=== PATIENT | female | born 1990 | race Caucasian/White ===

== ENCOUNTER 2016-11-11 07:10 | Day surgery (SDC) | payer BC ==
--- NOTE | 2016-11-10 07:44 | HP ---
DATE OF ADMISSION: 11/11/2016 CHIEF COMPLAINT: Nonviable at 11 weeks' gestational age. HISTORY OF PRESENT ILLNESS: The patient is a 26-year-old, 4, para 3-0-1-3, white female who is scheduled and seen for a 1st visit on 11/09/2016. She reports her last menstrual period to be relatively certainly starting on 08/18/2016. Her last period lasted for approximately 4 days. She is in today for her first visit and an ultrasound shows nonviable . A confirmatory ultrasound was done in Outpatient Radiology and is supportive of the diagnosis of nonviable . Her crown-rump length is consistent with 10 weeks and 6 days. The patient is informed of the results, alternatives of care at this point including natural passage of tissue, Cytotec induction of labor, D and C. The patient opted D and C. Also discussed with the patient the potential etiology, especially in light of her 3 previous sections and the possible scarring, also options of evaluation if the patient is desirous which she does not appear to be. 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 The patient has had 3 sections performed, first one was failure to progress, the other 2 were repeat C-sections in 2010, 2013, and 2014. First baby was 6 pounds 9 ounces. The patient had menarche at age 14, cycles q.28 days. No control at the time of conception. Not a planned but an acceptable . ALLERGIES: None. CURRENT MEDICATIONS: Synthroid 300 mcg daily. PAST MEDICAL HISTORY: 1. Thyroid cancer. 2. Abnormal Pap smears in 2011, 2012, 2013. 3. Frequent kidney infections. 4. Jasmeet disease. PAST SURGICAL HISTORY: 1. in 2010, 2013, and 2014. During the 2014, it was noted that her uterine scar separation had occurred. This was insignificant as far as the outcome of . 2. Right knee arthroscopic surgery in 2008. FAMILY HISTORY: Mother is alive and well. Father is alive and well. One sister alive and well. Maternal grandmother is alive and well. Maternal grandfather is , questionable cause. Paternal grandmother secondary to lung cancer - was a smoker. Paternal grandfather is alive but has history of prostate cancer. There are twins and triplets in the family but no bleeding or blood clotting abnormalities. SOCIAL HISTORY: The patient is . is Kai Godoy . They live in [place], [place]. She does not use any significant alcohol, drugs, or tobacco. 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 REVIEW OF SYSTEMS: CARDIAC: Negative for cardiac disease. RESPIRATORY: No concerns. GI: No nausea, vomiting, diarrhea, or mucus in the stools. EXTREMITIES: No joint swellings or discomfort. : Early is quite audible. PHYSICAL EXAMINATION: VITAL SIGNS: Her blood pressure is 108/64, height is 5 feet 8 inches. Pre gravid weight was 190. Weight today is 186. GENERAL: The patient is a well-developed, well-nourished, pleasant female of stated age, in no acute distress. SKIN: Warm and dry, without lesions. LUNGS: Clear with good breath sounds in all lung . CARDIOVASCULAR: Shows regular rate and rhythm without murmurs. BREASTS: Exam performed shows no significant masses, dimpling, or discharge bilaterally. No axillary or supraclavicular lymphadenopathy is noted. GENITAL: Per bimanual shows a 10 weeks' size uterus. EXTREMITIES AND NEUROLOGICAL: Grossly within normal limits. ASSESSMENT: 1. Miscarriage at approximately 10-11 weeks by ultrasound dating. Etiology uncertain. 2. Risk factors include a history of hypertrophic scars and history of thyroid cancer. Also history of x3. PLAN: 1. Options of therapy are discussed with the patient including natural passage of tissue, Cytotec induction of labor, intervention with dilation, suction, and curettage. The patient opts for the latter. Procedure risks, benefits, and complications and alternatives were discussed in detail. 2. DVT prophylaxis with SCDs. 3. Infection prophylaxis with Ancef 2 g IV preop. 4. We will send tissue to Pathology. MMODAL /[id number]
[~2016-11-11 07:10] MED LIST: Dexamethasone 4 MG/ML 5 ML MDV ONE; Lactated Ringers 1,000 ML IV SCH; Lidocaine 1%/Sod Bicarbonate in NS 8.4% 1 ML Syringe PRN; Midazolam 1 MG/ML 2 ML SDV ONE; Ondansetron 4 MG/2 ML SDV ONE; Propofol 200 MG/20 ML SDV ONE; Sodium Chloride 0.9% 10 ML ONE; Sodium Chloride 0.9% 10 ML Syringe FLUSH PRN; ceFAZolin 1 GM Vial ONE; fentaNYL 100 MCG/2 ML SDV ONE
--- NOTE | 2016-11-11 07:32 | PCM.PREANE ---
Preanesthetic Assessment - Anesthesia/Transfusion/Family Hx Anesthesia History: Prior Anesthesia Without Reaction Type of Anesthesia Reaction: Excessive Nausea/Vomiting, Unknown Family History of Anesthesia Reaction: No Transfusion History: Unknown Type of Transfusion Reactions: Reports: Unknown - Review of Systems General: No Symptoms Pulmonary: No Symptoms Cardiovascular: No Symptoms Gastrointestinal: No symptoms Neurological: No Symptoms Other: Reports: None - Physical Assessment NPO Status Date: 11/10/16 NPO Status Time: 22:00 Pulse: 60 O2 Sat by Pulse Oximetry: 99 Respiratory Rate: 16 Blood Pressure: 92/59 Height: 1.73 m Weight: 90.129 kg ASA Class: 2 Mental Status: Alert & Oriented x3 Airway Class: Mallampati = 2 Dentition: Reports: Normal Dentition Thyro-Mental Finger Breadths: 3 Mouth Opening Finger Breadths: 3 ROM/Head Extension: Full Lungs: Clear to auscultation, Normal respiratory effort Cardiovascular: Regular Rate, Regular Rhythm - Allergies Allergies/Adverse Reactions: Allergies Allergy/AdvReac Type Severity Reaction Status Date / Time No Known Allergies Allergy Verified 12/30/15 09:57 - Blood Blood Available: No Product(s) Available: None - Anesthesia Plan Pre-Op Medication Ordered: None - Acknowledgements Anesthesia Type Planned: General Anesthesia Pt an Appropriate Candidate for the Planned Anesthesia: Yes Alternatives and Risks of Anesthesia Discussed w Pt/Guardian: Yes Pt/Guardian Understands and Agrees with Anesthesia Plan: Yes PreAnesthesia Questionnaire - Past Health History Medical/Surgical History: Denies Medical/Surgical History HEENT History: Reports: None Cardiovascular History: Reports: None Respiratory History: Reports: None Other Respiratory History: laryngitis Gastrointestinal History: Reports: None Genitourinary History: Reports: UTI, recurrent 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: , Other (see below) Other OB/BYN History: pelvic pain, dysmenorrhea, female pelvic congestion syndrome, laparoscopy, pelvic adhesions, vaginitis Musculoskeletal History: Reports: Other (see below) Other Musculoskeletal History: knee surgery Neurological History: Reports: Migraines Other Neuro History: fatigue Endocrine/Metabolic History: Reports: Hypothyroidism Other Endocrine/Metabolic History: L thyroid lobectomy, thyroid nodule Hematologic History: Reports: Other (see below) Other Hematologic History: hypocalcemia, hypokalemia Immunologic History: Reports: None Oncologic (Cancer) History: Reports: Thyroid 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 Dermatologic History: Reports: None - Past Surgical History Head Surgeries/Procedures: Reports: None Other HEENT Surgeries/Procedures: wisdom teeth extraction Female Surgical History: Reports: section Endocrine Surgical History: Reports: Thyroidectomy Musculoskeletal Surgical History: Reports: Arthroscopic knee - SUBSTANCE USE Smoking Status *Q: Never Smoker Tobacco Use Within Last Twelve Months: No Second Hand Smoke Exposure: No Days Per Week of Alcohol Use: 0 Number of Drinks Per Day: 1 Total Drinks Per Week: 0 Recreational Drug Use History: No - HOME MEDS Home Medications: Home Meds Levothyroxine Sodium 300 mcg PO DAILY 12/29/15 [History] - CURRENT (IN HOUSE) MEDS Current Meds: Current Medications Lactated Ringer's (Ringers, Lactated) 1,000 mls @ 125 mls/hr IV ASDIRECTED EMERY Stop: 11/11/16 23:00 Lidocaine/Sodium Bicarbonate (Buffered Lidocaine 1% In Ns 8.4%) 0.25 ml .XX ONETIME PRN PRN Reason: Prior to IV Start Stop: 11/11/16 18:00 Sodium Chloride (Saline Flush) 10 ml FLUSH ASDIRECTED PRN PRN Reason: Keep Vein Open Stop: 11/11/16 18:00 Discontinued Medications Cefazolin Sodium (Ancef) Confirm Administered Dose 2 gm .ROUTE .STK-MED ONE Stop: 11/11/16 07:08 Dexamethasone (Dexamethasone) Confirm Administered Dose 20 mg .ROUTE .STK-MED ONE Stop: 11/11/16 07:08 Fentanyl (Sublimaze) Confirm Administered Dose 100 mcg .ROUTE .STK-MED ONE Stop: 11/11/16 07:09 Sodium Chloride (Normal Saline) Confirm Administered Dose 10 mls @ as directed .ROUTE .STK-MED ONE Stop: 11/11/16 07:08 Midazolam HCl (Versed 1 Mg/Ml) Confirm Administered Dose 2 mg .ROUTE .STK-MED ONE Stop: 11/11/16 07:09 Ondansetron HCl (Zofran) Confirm Administered Dose 4 mg .ROUTE .STK-MED ONE Stop: 11/11/16 07:08 Propofol (Diprivan 20 Ml) Confirm Administered Dose 200 mg .ROUTE .STK-MED ONE Stop: 11/11/16 07:09 Preanesthetic Assessment - ANESTHESIA/TRANSFUSION/FAMILY HX Anesthesia/Transfusion History: No Prior Transfusion(s), Prior Anesthesia Type of Anesthesia Reaction: Reports: Excessive Nausea/Vomiting (Scopalamine patch oredered.) Family History of Anesthesia Reaction: No Intubation History: Unknown - PHYSICAL ASSESSMENT Height: 1.73 m Weight: 90.129 kg - ALLERGIES Allergies/Adverse Reactions: Allergies Allergy/AdvReac Type Severity Reaction Status Date / Time No Known Allergies Allergy Verified 12/30/15 09:57
[2016-11-11] MEDS ORDERED: Ondansetron 4 MG/2 ML SDV IVPUSH PRN ×2 (07:41→08:30)
[2016-11-11] MEDS ORDERED: Metoclopramide 10 MG/2 ML SDV IVPUSH PRN (07:42)
[2016-11-11] MEDS ORDERED: Scopolamine 1.5 MG Transdermal Patch TRDERM ONE (07:45)
[2016-11-11] MEDS ORDERED: Methylergonovine 0.2 MG/1 ML Amp ONE (07:55)
[2016-11-11] MEDS ORDERED: Lactated Ringers 1,000 ML ONE (08:23)
--- NOTE | 2016-11-11 08:26 | PCM.POSTAN ---
POST ANESTHESIA ASSESSMENT - MENTAL STATUS Mental Status: alert, oriented - VITAL SIGNS Pulse Rate: 94 SaO2: 100 Resp Rate: 16 Blood Pressure: 96/54 Temperature: 37.1 C - RESPIRATORY Respiratory Status: respiratory rate WNL, airway patent, O2 saturation stable, supplemental oxygen - CARDIOVASCULAR CV Status: pulse rate WNL, blood pressure stable - GASTROINTESTINAL GI Status: no symptoms - PAIN Pain Score: 0 - POST OP HYDRATION Hydration Status: adequate & stable
[2016-11-11] MEDS ORDERED: Ibuprofen 600 MG Tab PO PRN (08:30)
--- NOTE | 2016-11-11 08:36 | PCM.OPNOTE ---
- General Post-Op/Procedure Note Date of Surgery/Procedure: 11/11/16 Operative Procedure(s): Dilation and suction curettage Findings: Uterus sounded to 14 cm. Tissue present consistent with products of conception. More than average bleeding with estimated blood loss 700 cc. Bleeding decreased significantly with administration of Methergine 0.2 mg IM. Bilateral adnexa within normal limits. Uterus was anteverted and midline. Pre Op Diagnosis: Nonviable Post-Op Diagnosis: Same Anesthesia Technique: General LMA Secondary Surgeon: Uday Ponce Drywall Taper: Zenia Tse Fluid Replacement, Intraop: 900 (Distorted) EBL in mLs: 700 Complications: None Condition: Good Free Text/Narrative:: Surgery duration: 23 minutes Complications call none Condition: Good Procedure:The patient was taken to the operating room and placed in a supine position on the operating table. General LMA anesthesia was administered. After adequate anesthesia the patient was placed in a dorsal lithotomy position and prepped and draped in usual fashion. A weighted speculum placed in vagina. The cervix was grasped with a single-tooth tenaculum. The uterus sounded to approximately 14 cm. It was anterior and freely mobile. Cervix is multiparous in appearance and partially dilated. The cervix was then dilated to allow a 10 mm suction curette to be placed. The suction curette was then used to aspirate the contents of the endometrial cavity. Products were tannish and yellowish in color and appeared to be consistent with products of conception. These are sent for histologic evaluation. After a suction curette was introduced and tissue was removed a sharp curette was then introduced and uterine cavity was felt to be completely evacuated. A uterine polyp forceps was introduced and no further tissue was obtained. The suction curette reintroduced and remaining blood and endometrial cavity was removed. At this time the the cervix was released from the tenaculum, the weighted speculum was removed. Sponge stick was used to remove remaining blood from the vaginal vault. No significant bleeding was noted. She was returned to supine position and awakened from general endotracheal anesthesia. Patient tolerated the procedure well. Sponge and instrument counts are correct at the end of procedure.
[2016-11-11] MEDS ORDERED: fentaNYL 100 MCG/2 ML SDV IVPUSH PRN (08:41)
[2016-11-11 09:47] VITALS: BP 96/37
== END 2016-11-11 09:40 | disposition home or self-care (01) ==
LOC: JD.SDS 07:10
PROVIDERS: ATTEND Obstetrics & Gynecology
DX: O41.8X11 Other specified disorders of amniotic fluid and membranes, first trimester, fetus 1 (principal); E03.9 Hypothyroidism, unspecified; E83.51 Hypocalcemia; E87.6 Hypokalemia; Z79.899 Other long term (current) drug therapy; Z98.890 Other specified postprocedural states; O41.1410 Placentitis, first trimester, not applicable or unspecified
CPT/HCPCS: 59812; 88305; A9270; J0690; J1100; J2210; J2250; J2405; J3010; J7120; 00940; J2704

== ENCOUNTER 2018-01-02 05:16 | Inpatient (IN) | payer BC ==
--- NOTE | 2017-12-30 06:32 | PCM.LDHP ---
L&D History of Present Illness - General Date of Service: 01/02/18 Admit Problem/Dx: Admission Diagnosis/Problem Admission Diagnosis/Problem 12/30/17 06:14 37-3/7 week intrauterine , history of section 3, severe abdominal pain, desire for repeat section Source of Information: Patient History Limitations: Reports: No Limitations - History of Present Illness Introduction:: History of present illness: Franca is a 27-year-old 5 para 2113 white female is admitted at 37-3/7 weeks gestational age for an elective repeat section. Time of section is done because of patient's moderate to severe abdominal pain in the area of her uterine scar. THAD is 2017 is based upon a certain laststarting 04/15/2017 and supported by multiple ultrasounds done on 06/10/2017, 07/11/2017, 09/06/2017 and 12/21/2017. The procedure, risks, benefits, timing of the at 37+ weeks all discussed with patient in detail. She appears to understand the risks, benefits and wishes to proceed. Consent has been signed. 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 Certain last menstrual period started on . She had monthly cycles, using no control time conception. Menarche age 14. Previous obstetric history includes the followin. 12/29/2010 week [id number] hours of labor6 lbs. 9 oz. female born by section secondary to failure to progress. Baby born in [facility] -child's name is Dio 2. [id number] week pregnancy8 lbs. 8 oz. [facility]2014 37-5/7 week -7 lbs. 3 oz.femalerepeat sectionchild's name is Marcos 4. 11/11/2016miscarriage at 12 weeks 1 day with spontaneous delivery history: Patient was seen early in the on 06/10/2017 at which time a diamniotic twin gestation was noted. On reevaluation on 07/11/2017 twin B appeared nonviable and appeared to be seen. Findings consistent with vanishing twin syndrome. This does not seem to affect the remainder of the . Patient has had constant abdominal pain which is worsening to the point where it is moderate to severe at the end of the . She declined genetic testing. Her depression screening score on 09/21/2017 was 0/ 30 history of polycystic ovarian syndrome. care was given on a regular basis starting as above. Continued until present. Her waking was from 202.2 pounds 2 215.6 pounds for a 13.4 pound weight gain. Vital signs remained stable throughout the course. Fundal height growth has been appropriate. Laboratory testing in showed blood which is all positive with a negative and by screen. First hemoglobin was 12.5 g/dL. Platelets were 221,000. She is rubella immune. RPR is nonreactive. First showed Escherichia coli which was treated with Macrobid. Hepatitis B surface antigen and HIV SCDs were both negative. Her TSH was normal at 0.168 mU/L. Second trimester labs showed a hemoglobin of 13.4, platelets 184,000. Her 1 hour GTT was normal at 126. Allergies none Medications: 1. Hydroxyzine HCL 25 mg orally when necessary. 2. Synthroid 300 g daily 3. Percocet 1-2 tabs every 6 hours when necessary for abdominal pain Past medical history: 1. Miscarriage 1 2. Jasmeet's thyroiditis, resultant hypothyroidism 3. Atrophic scar formation 4. Recurrent urinary tract infections Past surgical history: 3 2. Right knee arthroscopic surgery 2008 3. Thyroid cancer 2015 with resultant thyroidectomy Family history: Unremarkable for bleeding disorders, blood clotting disorders, anesthesia problems or asthma. No -related problems noted in the family other. New Pap social history: Patient is , lives in [facility]. 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 She does not use any significant loss of alcohol , drugs or tobacco. 's name is Jamey Godoy. Review of systems: In general patient is doing well with the exception of moderate to severe abdominal pain in the area of the lower abdomen. Skin: Negative except for the development of hypertrophic scars Cardiovascular: No chest pain or exercise intolerance Respiratory: No shortness of breath or infectious symptoms Breasts: Changes Celsius. See only GI: Negative : Pain as described above Musculoskeletal: Negative Neurological: Negative Physical exam: In general patient is a well-developed, well-nourished, pleasant female who appears in moderate distress secondary to abdominal discomfort. This is chronic in nature has been present throughout the whole but per his report patient to have slowly progressed to moderate to severe in nature. On evaluation on 12/29/2017 blood pressure is 115/70, weight was 215.6 and heart rate is 136. Pregravid weight was 202.2 pounds and height is 5 feet 9. Body mass index is 28.1 Skin is warm dry without lesions patient however has hypertrophic scar formation area were thyroidectomy and her section. HEENT, neck and back within normal notes Lungs are clear with good breath sounds in all . Cardiovascular exam shows regular rate and rhythm without murmurs. Abdomen is protuberant with fundal height of 37-1/2 cm with baby in vertex presentation by Romie maneuvers. Cervical exam is not performed Extremities and neurological exam are grossly within normal limits. - Related Data Allergies/Adverse Reactions: Allergies Allergy/AdvReac Type Severity Reaction Status Date / Time No Known Allergies Allergy Verified 12/30/15 09:57 Home Medications: Home Meds Levothyroxine Sodium 300 mcg PO DAILY 12/29/15 [History] Ibuprofen [IJD: Ibuprofen] 600 mg PO Q4H PRN #30 tablet 11/11/16 [Rx] Nitrofurantoin Monohyd/M-Cryst [Macrobid 100 mg Capsule] 100 mg PO BID #40 capsule 10/28/17 [Rx] Past Medical History - Past Health History Medical/Surgical History: Denies Medical/Surgical History HEENT History: Reports: None Cardiovascular History: Reports: None Respiratory History: Reports: None Other Respiratory History: laryngitis Gastrointestinal History: Reports: None Genitourinary History: Reports: UTI, Recurrent 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: , 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) Other OB/BYN History: pelvic pain, dysmenorrhea, female pelvic congestion syndrome, laparoscopy, pelvic adhesions, vaginitis Musculoskeletal History: Reports: 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) Other Musculoskeletal History: knee surgery Neurological History: Reports: Migraines Other Neuro History: fatigue Endocrine/Metabolic History: Reports: Hypothyroidism Other Endocrine/Metabolic History: L thyroid lobectomy, thyroid nodule Hematologic History: Reports: 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) Other Hematologic History: hypocalcemia, hypokalemia Immunologic History: Reports: None Oncologic (Cancer) History: Reports: Thyroid 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 Dermatologic History: Reports: None - Past Surgical History Female Surgical History: Reports: Section Musculoskeletal Surgical History: Reports: Arthroscopic Knee Social & Family History - Tobacco Use Smoking Status *Q: Never Smoker Years of Tobacco use: 2 Used Tobacco, but Quit: Yes Month/Year Tobacco Last Used: 2007 Second Hand Smoke Exposure: No - Alcohol Use Days Per Week of Alcohol Use: 0 Number of Drinks Per Day: 1 Total Drinks Per Week: 0 - Recreational Drug Use Recreational Drug Use: No Drug Use in Last 12 Months: No - Living Situation & Occupation Living situation: Reports: , with Family Occupation: Employed H&P Review of Systems - Review of Systems: Review Of Systems: See Below L&D Exam - Exam Exam: See Below Problem List Initiated/Reviewed/Updated: Yes Assessment/Plan Comment:: Assessment: 1. 5 para 2113 to be admitted on 01/02/2018 for elective repeat C- section at 37-3/7 weeks gestational age with an THAD of 01/20/2018. Early C- section to be done for progressive abdominal pain and area of uterine scar. 2. History of hypertrophic scar formation 3. Risk factors include the following: History of 3, history of hypertrophic scar formation, history of hypothyroidism status post thyroidectomy for thyroid cancer now on replacement is from the hospital Plan: 1. Repeat lower uterine segment transverse section through Pfannenstiel skin incision under spinal block. Procedure, risks, benefits, removal of scar and likelihood of hypertrophic scar formation with this procedure all discussed in detail patient. She appears to understand, wishes to proceed and signed consent. 2. DVT prophylaxis SCDs 3. Infection prophylaxis with Ancef 2 g IV preop. 4. CBC, type and screen to be done prior to surgery.
[~2018-01-02 05:16] MED LIST changes: -Dexamethasone 4 MG/ML 5 ML MDV ONE; -Lactated Ringers 1,000 ML IV SCH; -Lidocaine 1%/Sod Bicarbonate in NS 8.4% 1 ML Syringe PRN; -Midazolam 1 MG/ML 2 ML SDV ONE; -Ondansetron 4 MG/2 ML SDV ONE; -Propofol 200 MG/20 ML SDV ONE; -Sodium Chloride 0.9% 10 ML ONE; -ceFAZolin 1 GM Vial ONE; -fentaNYL 100 MCG/2 ML SDV ONE
[2018-01-02] MEDS ORDERED: ceFAZolin 2 GM in Premix Bag 1 BAG IV ONE (06:00)
[2018-01-02] MEDS ORDERED: Citric Acid/Sodium Citrate Solution 30 ML Cup PO ONE (06:00)
[2018-01-02] MEDS ORDERED: Metoclopramide 10 MG/2 ML SDV IVPUSH ONE (06:00)
[2018-01-02] MEDS: Lactated Ringers 1,000 ML IV SCH ×2 (06:00→07:21)
[2018-01-02] MEDS ORDERED: Bupivacaine 0.5% 30 ML SDV ONE (06:32)
[2018-01-02] MEDS ORDERED: Morphine PF 1 MG/ML Amp ONE (06:50)
[2018-01-02] MEDS ORDERED: ceFAZolin 1 GM Vial ONE (06:52)
[2018-01-02] MEDS ORDERED: Oxytocin 10 Units/1 ML SDV ONE (06:52)
[2018-01-02] MEDS ORDERED: Ondansetron 4 MG/2 ML SDV ONE (06:52)
[2018-01-02] MEDS ORDERED: Ketorolac 30 MG/ML SDV ONE (06:52)
[2018-01-02] MEDS ORDERED: Lactated Ringers 2,000 ML ONE (06:52)
[2018-01-02] MEDS ORDERED: Bupivacaine 0.75%/D5W 2 ML Amp ONE (06:53)
--- NOTE | 2018-01-02 07:20 | PCM.PREANE ---
Preanesthetic Assessment - Anesthesia/Transfusion/Family Hx Anesthesia History: Prior Anesthesia Without Reaction Transfusion History: No Prior Transfusion(s) Type of Transfusion Reactions: Reports: Unknown - Review of Systems General: No Symptoms Pulmonary: No Symptoms Cardiovascular: No Symptoms Gastrointestinal: No Symptoms Neurological: No Symptoms Other: Reports: Thyroid Problems - Physical Assessment NPO Status Date: 01/01/18 NPO Status Time: 22:30 O2 Sat by Pulse Oximetry: 99 Respiratory Rate: 18 Vital Signs: Last Vital Signs Temp 36.5 C 01/02/18 06:00 Pulse 88 01/02/18 06:00 Resp 18 01/02/18 06:00 BP 106/76 01/02/18 06:00 Pulse Ox 99 01/02/18 06:00 Height: 1.73 m Weight: 98.43 kg ASA Class: 2 Mental Status: Alert & Oriented x3 Airway Class: Mallampati = 1 Dentition: Reports: Normal Dentition Thyro-Mental Finger Breadths: 3 Mouth Opening Finger Breadths: 3 ROM/Head Extension: Full Lungs: Clear to Auscultation, Normal Respiratory Effort Cardiovascular: Regular Rate, Regular Rhythm - Lab Values: Laboratory Last Values WBC 7.95 K/mm3 (3.98-10.04) 01/02/18 06:10 RBC 3.82 M/mm3 (3.98-5.22) L 01/02/18 06:10 Hgb 12.0 gm/L (11.2-15.7) 01/02/18 06:10 Hct 35.0 % (34.1-44.9) 01/02/18 06:10 MCV 91.6 fl (79.4-94.8) 01/02/18 06:10 MCH 31.4 pg (25.6-32.2) 01/02/18 06:10 MCHC 34.3 g/dl (32.2-35.5) 01/02/18 06:10 RDW Std Deviation 43.6 fL (36.4-46.3) 01/02/18 06:10 Plt Count 144 K/mm3 (182-369) L 01/02/18 06:10 MPV 10.3 fl (9.4-12.3) 01/02/18 06:10 Neut % (Auto) 61.4 % (34.0-71.1) 01/02/18 06:10 Lymph % (Auto) 26.0 % (19.3-51.7) 01/02/18 06:10 Taylor % (Auto) 7.8 % (4.7-12.5) 01/02/18 06:10 Eos % (Auto) 3.4 (0.7-5.8) 01/02/18 06:10 Baso % (Auto) 0.5 % (0.1-1.2) 01/02/18 06:10 Neut # (Auto) 4.88 K/mm3 (1.56-6.13) 01/02/18 06:10 Lymph # (Auto) 2.07 K/mm3 (1.18-3.74) 01/02/18 06:10 Taylor # (Auto) 0.62 K/mm3 (0.24-0.36) H 01/02/18 06:10 Eos # (Auto) 0.27 K/mm3 (0.04-0.36) 01/02/18 06:10 Baso # (Auto) 0.04 K/mm3 (0.01-0.08) 01/02/18 06:10 - Allergies Allergies/Adverse Reactions: Allergies Allergy/AdvReac Type Severity Reaction Status Date / Time No Known Allergies Allergy Verified 12/30/15 09:57 - Anesthesia Plan Pre-Op Medication Ordered: Antacids - Acknowledgements Anesthesia Type Planned: Spinal Pt an Appropriate Candidate for the Planned Anesthesia: Yes Alternatives and Risks of Anesthesia Discussed w Pt/Guardian: Yes Pt/Guardian Understands and Agrees with Anesthesia Plan: Yes PreAnesthesia Questionnaire - Past Health History Medical/Surgical History: Denies Medical/Surgical History HEENT History: Reports: None Cardiovascular History: Reports: None Respiratory History: Reports: None Other Respiratory History: laryngitis Gastrointestinal History: Reports: None Genitourinary History: Reports: UTI, Recurrent SPARK TESTER History: Reports: , 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) Other OB/BYN History: pelvic pain, dysmenorrhea, female pelvic congestion syndrome, laparoscopy, pelvic adhesions, vaginitis Musculoskeletal History: Reports: 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) Other Musculoskeletal History: knee surgery Neurological History: Reports: Migraines Other Neuro History: fatigue Endocrine/Metabolic History: Reports: Hypothyroidism Other Endocrine/Metabolic History: L thyroid lobectomy, thyroid nodule Hematologic History: Reports: 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) Other Hematologic History: hypocalcemia, hypokalemia Immunologic History: Reports: None Oncologic (Cancer) History: Reports: Thyroid 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 Dermatologic History: Reports: None - Past Surgical History Head Surgeries/Procedures: Reports: None Female Surgical History: Reports: Section Musculoskeletal Surgical History: Reports: Arthroscopic Knee - SUBSTANCE USE Smoking Status *Q: Never Smoker Tobacco Use Within Last Twelve Months: No Second Hand Smoke Exposure: No Days Per Week of Alcohol Use: 0 Number of Drinks Per Day: 1 Total Drinks Per Week: 0 Recreational Drug Use History: No - HOME MEDS Home Medications: Home Meds Levothyroxine Sodium 300 mcg PO DAILY 12/29/15 [History] Ibuprofen [IJD: Ibuprofen] 600 mg PO Q4H PRN #30 tablet 11/11/16 [Rx] Nitrofurantoin Monohyd/M-Cryst [Macrobid 100 mg Capsule] 100 mg PO BID #40 capsule 10/28/17 [Rx] - CURRENT (IN HOUSE) MEDS Current Meds: Current Medications Lactated Ringer's (Ringers, Lactated) 1,000 mls @ 125 mls/hr IV ASDIRECTED EMERY Oxytocin 20 unit/ Lactated (Ringer's) 1,002 mls @ 1,503 mls/hr IV ASDIRECTED EMERY Sodium Chloride (Saline Flush) 10 ml FLUSH ASDIRECTED PRN PRN Reason: Keep Vein Open Discontinued Medications Bupivacaine HCl (Marcaine 0.5%) Confirm Administered Dose 30 ml .ROUTE .STK-MED ONE Stop: 01/02/18 06:33 Bupivacaine HCl/Dextrose (Marcaine 0.75% Spinal) Confirm Administered Dose 2 ml .ROUTE .STK-MED ONE Stop: 01/02/18 06:54 Cefazolin Sodium (Ancef) Confirm Administered Dose 2 gm .ROUTE .STK-MED ONE Stop: 01/02/18 06:53 Citric Acid/Sodium Citrate (Bicitra Solution) 30 ml PO ONETIME ONE Stop: 01/02/18 06:01 Cefazolin Sodium/Dextrose 2 gm (/ Premix) 50 mls @ 100 mls/hr IV ONETIME ONE Stop: 01/02/18 06:29 Lactated Ringer's (Ringers, Lactated) Confirm Administered Dose 2,000 mls @ as directed .ROUTE .STK-MED ONE Stop: 01/02/18 06:53 Ketorolac Tromethamine (Toradol) Confirm Administered Dose 30 mg .ROUTE .STK- MED ONE Stop: 01/02/18 06:53 Metoclopramide HCl (Reglan) 10 mg IVPUSH ONETIME ONE Stop: 01/02/18 06:01 Morphine Sulfate (Duramorph Pf) Confirm Administered Dose 1 mg .ROUTE .STK-MED ONE Stop: 01/02/18 06:51 Ondansetron HCl (Zofran) Confirm Administered Dose 4 mg .ROUTE .STK-MED ONE Stop: 01/02/18 06:53 Oxytocin (Pitocin) Confirm Administered Dose 10 unit .ROUTE .STK-MED ONE Stop: 01/02/18 06:53
[2018-01-02] MEDS ORDERED: Phenylephrine/Normal Saline 100 MCG/ML 10 ML Syringe ONE (08:18)
[2018-01-02] MEDS ORDERED: fentaNYL 100 MCG/2 ML SDV IVPUSH PRN (08:35)
[2018-01-02] MEDS ORDERED: diphenhydrAMINE 50 MG/ML SDV IVPUSH PRN ×2 (08:35→13:42)
[2018-01-02] MEDS ORDERED: Meperidine PF 50 MG/ML Syringe IVPUSH PRN (08:35)
[2018-01-02] MEDS ORDERED: Ondansetron 4 MG/2 ML SDV IVPUSH PRN (08:35)
--- NOTE | 2018-01-02 08:35 | PCM.POSTAN ---
POST ANESTHESIA ASSESSMENT - MENTAL STATUS Mental Status: Alert, Oriented - VITAL SIGNS Pulse Rate: 72 SaO2: 100 Resp Rate: 14 Blood Pressure: 94/51 Temperature: 37.2 C - RESPIRATORY Respiratory Status: Respiratory Rate WNL, Airway Patent, O2 Saturation Stable - CARDIOVASCULAR CV Status: Pulse Rate WNL, Blood Pressure Stable - GASTROINTESTINAL GI Status: No Symptoms - PAIN Pain Score: 0 - POST OP HYDRATION Hydration Status: Adequate & Stable
--- NOTE | 2018-01-02 13:27 | PCM.OPNOTE ---
- General Post-Op/Procedure Note Date of Surgery/Procedure: 01/02/18 Operative Procedure(s): Repeat lower segment transverse section through Pfannenstiel skin incision Findings: Severe scarring with hypertrophic scar in the skin surface but moderate to severe scarring in the anterior abdominal wall. Minimal scarring involving the uterus. The uterus demonstrated a window through which the baby could be seen in the lower uterine segment. This consistent with total separation of the previous uterine scar. Uterus otherwise within normal as was the other pelvic anatomy, the ovaries and the fallopian tubes. No significant scarring internally as noted. The bladder was advanced minimally onto the lower uterine segment. Pre Op Diagnosis: 37-3/7 week intrauterine , moderate severe abdominal pain related to , history of previous section 3. Post-Op Diagnosis: Same with separation of the uterine scar. Delivery of a viable male infant Anesthesia Technique: Spinal Other Anesthesia Type: Marcaine 0.25% 20 mL Primary Surgeon: Uday Ponce Secondary Surgeon: Jeramy Monroy Anesthesia Provider: Sunshine Dotson Reason Instructor Kindergarten Was Necessary: Retraction, patient's safety, assistance, quality of care. Role of Instructor Kindergarten: Retraction, assistance Fluid Replacement, Intraop: 1,200 EBL in mLs: 400 Drain/Tube Comments:: Indwelling bladder catheter Complications: None Condition: Good Free Text/Narrative:: Intake & Output 01/01/18 01/02/18 01/02/18 22:59 06:59 14:59 Intake Total 250 Output Total 300 Balance -50 Procedure: Patient was transferred to the room and placed in a sitting position. Spinal anesthesia was administered. After confirmation of adequate anesthesia patient was placed in a supine position with a wedge under her right side to facilitate left lateral positioning. The patient was prepped and draped in usual fashion after Malone catheter was already placed . The anesthetic was checked and found to be adequate. 20 mL of Marcaine 0.5% was injected locally in the Pfannenstiel incision site. The Pfannenstiel skin incision was then made carried down to skin subcutaneous and fascial layers. The fascia was then undermined superiorly and inferiorly to allow for adequate operating room the recti muscles midline and preperitoneal fat was bluntly dissected. Peritoneal cavity was entered longitudinally. Lower uterine segment of the uterus was found to be with a gaping window with only serosa and amnion and chorion intact.Brennan cyst with pleats separation of the uterine scar. The amniotic sac was then ruptured resulting clear amniotic fluid. A hand is placed in the low uterine segment and the baby's head was brought forth through the incision. The baby was completely delivered using fundal pressure in a routine fashion. The nose and mouth were bulb suctioned. Baby's cord was clamped x2 cut and baby was handed off to attending nursery personnel. Placenta was expressed after cord blood was obtained. Uterus was then exteriorized to allow for easier closure. The cervix was assessed and found to be dilated adequately to allow egress of blood. The uterus was closed in 2 layers. The first layer a running locked suture of 0 Monocryl, the second layer a running locked vertical mattress suture of 0 Monocryl. [id number] suture was placed at the left incision to control 1 bleeder. Hemostasis confirmed at this time. Sponge instrument needle counts are correct. The uterus was returned to the abdominal cavity and lateral gutters were cleared of blood. Once again sponge needle counts are correct. The anterior abdominal wall was closed with a #1 PDS suture from angle to angle. The subcutaneous area was found to be free of any bleeders. interrupted sutures of 3-0 Monocryl were used to reapproximate the subcutaneous layer.Skin was closed with a running subcuticular stitch of 3- 0 Monocryl in a vertical mattress suture fashion using a Jakob needle. Prineo mesh/glue was then applied to further approximate the incision. It should be noted that patient received 2 g of Ancef preoperatively for infection prophylaxis and had Pitocin infused after delivery of the placenta to facilitate uterine contraction. She also had sequential compression stockings in place for DVT prophylaxis. Patient was discharged from the operating room in satisfactory condition.
[2018-01-02] MEDS ORDERED: Dextrose 5%-Lactated Ringers 1,000 ML IV SCH (13:42)
[2018-01-02] MEDS ORDERED: Naloxone 0.4 MG/ML SDV IVPUSH PRN (13:42)
[2018-01-02] MEDS ORDERED: Acetaminophen/oxyCODONE 325-5 MG Tab PO PRN (13:42)
[2018-01-02] MEDS ORDERED: ePHEDrine 50 MG/ML SDV IVPUSH PRN (13:42)
[2018-01-02] MEDS ORDERED: Lanolin 100% Cream 7 GM Tube TOP PRN (13:42)
[2018-01-02] MEDS ORDERED: Docusate Sodium 100 MG Cap PO PRN (13:42)
[2018-01-02] MEDS ORDERED: Prenatal Multivitamin with Calcium/Folic Acid/Iron Tab PO SCH (14:00)
[2018-01-02] MEDS ORDERED: Ibuprofen 800 MG Tab PO SCH (14:00)
--- NOTE | 2018-01-02 17:34 | PCM.DCSUM1 ---
Discharge Summary - Hospital Course Free Text/Narrative:: Franca is a 5 para 389 white female who was admitted this morning 01/02 for elective repeat section. Is 37-3/7 weeks gestational age based on certain last menstrual period and supported by ultrasounds. She had severe abdominal pain which is progressive in nature. This pain in the area of her scar. Concern was regarding separation of the uterine scar. She was taking Percocet for this pain but without significant relief. testing has been normal. She underwent repeat section with delivery of 6 lbs. 4 oz. male infant at 0857 hrs. on 01/02/2018. Baby are has restricted problems and was transferred to intensive care unit at [facility] in [place]. Patient wishes to be discharged to be transferred. She is ambulating well, is tolerating fluids and food really very well. She has minimal discomfort. Minimal vaginal flow is present. She desires to be discharged. She has been informed of the potential risks of discharge at this early time especially in light of the fact that she might have more discomfort. section and she is well aware of the discomforts that she will encounter and feels comfortable going down to [place]. Her is accepting of this and is supportive of her decision. - Discharge Data Discharge Date: 01/02/18 Discharge Disposition: Home, Self-Care 01 Condition: Good - Patient Summary/Data Operative Procedure(s) Performed: Repeat lower segment transverse section through Pfannenstiel skin incision - Patient Instructions Diet: Regular Diet as Tolerated (Nursing diet was increased calories and calcium is recommended) Activity: As Tolerated Showering/Bathing: May Shower Wound/Incision Care: Keep Operative Site/Wound Site Clean and Dry Notify Provider of: Fever, Increased Pain, Swelling and Redness, Drainage, Nausea and/or Vomiting - Discharge Plan Home Medications: Home Meds Levothyroxine Sodium 300 mcg PO DAILY 12/29/15 [History] Ibuprofen [IJD: Ibuprofen] 600 mg PO Q4H PRN #30 tablet 11/11/16 [Rx] Acetaminophen/oxyCODONE [Percocet 325-5 MG] 2 tab PO Q4H PRN #30 tablet [Rx] Ibuprofen [Motrin] 600 mg PO Q4H PRN #30 tablet 01/02/18 [Rx] Referrals: Uday Ponce MD [Primary Care Provider] - (Return to [facility] week) - Discharge Summary/Plan Comment DC Time >30 min.: No Discharge Summary/Plan Comment: Discharge instructions: 1. Discharge home 2. Diet, activity and follow-up discussed with patient. Recommend nursing diet with increased calories and calcium. 3. Precautions given concern increased pain, bleeding, temperature, signs/ symptoms of DVT/PE. 4. Medications per home medication was printed, discussed with and given to the patient. 5. Return to clinic-Dr. Ponce[facility] in 1 week. Diagnosis: Term -delivered by repeat section Condition: Good - Patient Data Vitals - Most Recent: Last Vital Signs Temp 37.0 C 01/02/18 10:00 Pulse 72 01/02/18 13:48 Resp 16 01/02/18 11:00 BP 104/61 01/02/18 13:48 Pulse Ox 97 01/02/18 13:48 Weight - Most Recent: 98.43 kg I&O - Last 24 hours: Intake & Output 01/02/18 01/02/18 01/02/18 06:59 14:59 22:59 Intake Total 1450 810 Output Total 1700 Balance -250 810 Lab Results - Last 24 hrs: Laboratory Results - last 24 hr 01/02/18 Range/Units 06:10 WBC 7.95 (3.98-10.04) K/mm3 RBC 3.82 L (3.98-5.22) M/mm3 Hgb 12.0 (11.2-15.7) gm/L Hct 35.0 (34.1-44.9) % MCV 91.6 (79.4-94.8) fl MCH 31.4 (25.6-32.2) pg MCHC 34.3 (32.2-35.5) g/dl RDW Std Deviation 43.6 (36.4-46.3) fL Plt Count 144 L (182-369) K/mm3 MPV 10.3 (9.4-12.3) fl Neut % (Auto) 61.4 (34.0-71.1) % Lymph % (Auto) 26.0 (19.3-51.7) % Nuckolls % (Auto) 7.8 (4.7-12.5) % Eos % (Auto) 3.4 (0.7-5.8) Baso % (Auto) 0.5 (0.1-1.2) % Neut # (Auto) 4.88 (1.56-6.13) K/mm3 Lymph # (Auto) 2.07 (1.18-3.74) K/mm3 Nuckolls # (Auto) 0.62 H (0.24-0.36) K/mm3 Eos # (Auto) 0.27 (0.04-0.36) K/mm3 Baso # (Auto) 0.04 (0.01-0.08) K/mm3 Med Orders - Current: Current Medications Diphenhydramine HCl (Benadryl) 25 mg IVPUSH Q6H PRN PRN Reason: Itching or Nausea Docusate Sodium (Colace) 100 mg PO Q12H PRN PRN Reason: Constipation Emollient Ointment (Lansinoh Hpa) 0 gm TOP ASDIRECTED PRN PRN Reason: Sore Nipples Ephedrine Sulfate (Ephedrine Sulfate) 5 mg IVPUSH SEECOMMENT PRN PRN Reason: Other Dextrose/Lactated Ringer's (Dextrose 5%-Lactated Ringers) 1,000 mls @ 125 mls/ hr IV ASDIRECTED EMERY Stop: 01/02/18 21:41 Ibuprofen (Motrin) 800 mg PO Q8H [facility] Last Admin: 01/02/18 17:09 Dose: 800 mg Levothyroxine Sodium (Levothyroxine) 200 mcg PO ACBREAKFAST [facility] Levothyroxine Sodium (Synthroid) 100 mcg PO ACBREAKFAST [facility] Naloxone HCl (Narcan) 0.1 mg IVPUSH SEECOMMENT PRN PRN Reason: Respiratory Depression Oxycodone/Acetaminophen (Percocet 325-5 Mg) 2 tab PO Q4H PRN PRN Reason: Pain (moderate 4-6) Prenat Multivit/Crenshaw/Iron/Folic Ac ( Plus Iron) 1 each PO DAILY [facility] Simethicone (Simethicone) 80 mg PO PCBED [facility] Discontinued Medications Bupivacaine HCl (Marcaine 0.5%) Confirm Administered Dose 30 ml .ROUTE .STK-MED ONE Stop: 01/02/18 06:33 Last Admin: 01/02/18 07:48 Dose: 20 ml Bupivacaine HCl/Dextrose (Marcaine 0.75% Spinal) Confirm Administered Dose 2 ml .ROUTE .STK-MED ONE Stop: 01/02/18 06:54 Cefazolin Sodium (Ancef) Confirm Administered Dose 2 gm .ROUTE .STK-MED ONE Stop: 01/02/18 06:53 Citric Acid/Sodium Citrate (Bicitra Solution) 30 ml PO ONETIME ONE Stop: 01/02/18 06:01 Diphenhydramine HCl (Benadryl) 25 mg IVPUSH Q6H PRN PRN Reason: Pruritis Fentanyl (Sublimaze) 50 mcg IVPUSH Q5M PRN PRN Reason: Pain Cefazolin Sodium/Dextrose 2 gm (/ Premix) 50 mls @ 100 mls/hr IV ONETIME ONE Stop: 01/02/18 06:29 Lactated Ringer's (Ringers, Lactated) 1,000 mls @ 125 mls/hr IV ASDIRECTED [facility] Last Admin: 01/02/18 07:21 Dose: 125 mls/hr Oxytocin 20 unit/ Lactated (Ringer's) 1,002 mls @ 1,503 mls/hr IV ASDIRECTED [facility] Lactated Ringer's (Ringers, Lactated) Confirm Administered Dose 2,000 mls @ as directed .ROUTE .STK-MED ONE Stop: 01/02/18 06:53 Ketorolac Tromethamine (Toradol) Confirm Administered Dose 30 mg .ROUTE .STK- MED ONE Stop: 01/02/18 06:53 Meperidine HCl (Demerol) 12.5 mg IVPUSH ONETIME PRN PRN Reason: Shivering Metoclopramide HCl (Reglan) 10 mg IVPUSH ONETIME ONE Stop: 01/02/18 06:01 Last Admin: 01/02/18 07:18 Dose: 10 mg Morphine Sulfate (Duramorph Pf) Confirm Administered Dose 1 mg .ROUTE .STK-MED ONE Stop: 01/02/18 06:51 Ondansetron HCl (Zofran) Confirm Administered Dose 4 mg .ROUTE .STK-MED ONE Stop: 01/02/18 06:53 Ondansetron HCl (Zofran) 4 mg IVPUSH ONETIME PRN PRN Reason: Nausea/Vomiting Oxytocin (Pitocin) Confirm Administered Dose 10 unit .ROUTE .STK-MED ONE Stop: 01/02/18 06:53 Phenylephrine HCl (Phenylephrine In Ns 100 Mcg/Ml) Confirm Administered Dose 1 mg .ROUTE .STK-MED ONE Stop: 01/02/18 08:19 Sodium Chloride (Saline Flush) 10 ml FLUSH ASDIRECTED PRN PRN Reason: Keep Vein Open
[2018-01-02] MEDS ORDERED: Simethicone 80 MG Tab.Chew PO SCH (18:00)
[2018-01-03] MEDS ORDERED: Levothyroxine 100 MCG Tab PO SCH (06:00)
[2018-01-03 08:35] VITALS: BP 104/61
--- NOTE | 2018-01-03 08:35 | PCM48HPAN ---
Post Anesthesia Note - EVALUATION WITHIN 48HRS OF ANESTHETIC Vital Signs in Normal Range: Yes Patient Participated in Evaluation: No (Patient transferred with baby on vent) Respiratory Function Stable: Yes Airway Patent: Yes Cardiovascular Function Stable: Yes Hydration Status Stable: Yes Pain Control Satisfactory: Yes Mental Status Recovered: Yes (chart reviewed. spoke with nurse) Pulse Rate: 72 Resp Rate: 16 Temperature: 98.9 F Blood Pressure: 104/61
== END 2018-01-02 18:30 | disposition home or self-care (01) | DRG 540 ==
LOC: JD.OB 05:16
PROVIDERS: ADMIT Obstetrics & Gynecology; ATTEND Obstetrics & Gynecology
PROC: 10D00Z1 Extraction of Products of Conception, Low, Open Approach (ICD-10-PCS; principal; 2018-01-02)
DX: O34.211 Maternal care for low transverse scar from previous cesarean delivery (principal); Z3A.37 37 weeks gestation of pregnancy; Z37.0 Single live birth; O99.283 Endocrine, nutritional and metabolic diseases complicating pregnancy, third trimester; E89.0 Postprocedural hypothyroidism; Z79.899 Other long term (current) drug therapy; Z85.850 Personal history of malignant neoplasm of thyroid
CPT/HCPCS: 36415; 59020; 85025; 86850; 86900; 86901; A9270-GY; J0690; J1885; J2274; J2405; J2590; J2765; J7120

== ENCOUNTER 2018-02-26 12:40 | Emergency (ER) | payer BC ==
[2018-02-26 12:59] VITALS: BP 118/70
--- NOTE | 2018-02-26 14:33 | EDM.PDOC ---
ED HPI GENERAL MEDICAL PROBLEM - General Chief Complaint: Upper Extremity Injury/Pain Stated Complaint: FALL Time Seen by Provider: 02/26/18 13:05 Source of Information: Reports: Patient History Limitations: Reports: No Limitations - History of Present Illness INITIAL COMMENTS - FREE TEXT/NARRATIVE: 28 year old female presents for evaluation and treatment of injuries sustained from a fall. Fall occurred about 2 hours prior to arrival in the ED. Patient was outside holding her infant son when she tripped over the dog. She fell down her deck, approximately 3 stairs, landing on her left knee and left elbow. Reports she landed on asphalt. She denies any head trauma. No LOC. No neck pain , nausea, vomiting, chest pain or abdominal pain. She is primarily complaining of pain to the left elbow and left hip. She has abrasions and a small laceration to the left knee. Patient reports a right meniscus tear with subsequent repair and a left ACL tear which healed on its own. Patient does not immunize. Onset: Today Location: Reports: Upper Extremity, Left, Lower Extremity, Left Treatments CREDIT PROFESSIONAL: Reports: Other (see below) Other Treatments CREDIT PROFESSIONAL: none Left Elbow Pain Score (Numeric/FACES): 6 - Related Data Allergies Allergy/AdvReac Type Severity Reaction Status Date / Time No Known Allergies Allergy Verified 12/30/15 09:57 Home Meds: Home Meds Levothyroxine Sodium 300 mcg PO DAILY 12/29/15 [History] Ibuprofen [Motrin] 600 mg PO Q4H PRN #30 tablet 01/02/18 [Rx] Sertraline [Zoloft] 50 mg PO DAILY 02/26/18 [History] Past Medical History - Past Health History Medical/Surgical History: Denies Medical/Surgical History HEENT History: Reports: None Cardiovascular History: Reports: None Respiratory History: Reports: None Other Respiratory History: laryngitis Gastrointestinal History: Reports: None Genitourinary History: Reports: UTI, Recurrent 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 AND 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 EQUALIZER History: Reports: , 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) Other STAVE AND BOLT EQUALIZER History: pelvic pain, dysmenorrhea, female pelvic congestion syndrome, laparoscopy, pelvic adhesions, vaginitis Musculoskeletal History: Reports: 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) Other Musculoskeletal History: knee surgery Neurological History: Reports: Migraines Other Neuro History: fatigue Endocrine/Metabolic History: Reports: Hypothyroidism Other Endocrine/Metabolic History: L thyroid lobectomy, thyroid nodule Hematologic History: Reports: 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) Other Hematologic History: hypocalcemia, hypokalemia Immunologic History: Reports: None Oncologic (Cancer) History: Reports: Thyroid 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 Dermatologic History: Reports: None - Past Surgical History Head Surgeries/Procedures: Reports: None Female Surgical History: Reports: Section Musculoskeletal Surgical History: Reports: Arthroscopic Knee Social & Family History - Family History Family Medical History: Noncontributory - Tobacco Use Smoking Status *Q: Never Smoker - Caffeine Use Caffeine Use: Reports: Soda - Recreational Drug Use Recreational Drug Use: No - Living Situation & Occupation Living situation: Reports: , with Family Occupation: Employed Review of Systems - Review of Systems Review Of Systems: See Below Cardiovascular: Denies: Chest Pain GI/Abdominal: Denies: Abdominal Pain, Nausea, Vomiting Musculoskeletal: Reports: Arm Pain (left elbow), Leg Pain (left knee). Denies: Neck Pain, Shoulder Pain, Hand Pain Skin: Reports: Wound (abrasion and small laceration to the left knee) Neurological: Denies: Headache, Syncope ED EXAM, GENERAL - Physical Exam Exam: See Below Exam Limited By: No Limitations General Appearance: Alert, WD/WN, No Apparent Distress Eye Exam: Bilateral Eye: EOMI, Normal Inspection, PERRL Ears: Normal External Exam Nose: Normal Inspection Throat/Mouth: Normal Inspection, Normal Lips, Normal Voice, No Airway Compromise Head: Atraumatic, Normocephalic Neck: Normal Inspection, Supple, Non-Tender, Full Range of Motion Respiratory/Chest: No Respiratory Distress, Lungs Clear, Chest Non-Tender Cardiovascular: Normal Peripheral Pulses, Regular Rate, Rhythm, No Murmur Extremities: Normal Inspection (no obvious deformities noted), Limited Range of Motion (pain with left elbow flexion, feels best with the elbow at 90 degrees; able to flex the left knee to about 120 degrees), Other (reprots pain to the left elbow (olecranon process) and the left patella) Neurological: Alert, Oriented, Normal Cognition Psychiatric: Normal Affect, Normal Mood Skin Exam: Warm, Dry, Normal Color, Wound/Incision (several abrasions to the left knee, 0.5cm superfical laceration to the left knee) Course - Vital Signs Last Recorded V/S: Last Vital Signs Temp 97.3 F 02/26/18 12:56 Pulse 82 02/26/18 12:56 Resp 20 02/26/18 12:56 BP 118/70 02/26/18 12:56 Pulse Ox 99 02/26/18 12:56 - Radiology Interpretation Free Text/Narrative:: xray of the left elbow shows no acute fractures, no sail sign xray of the left knee shows no acute fractures or dislocations. - Re-Assessments/Exams Free Text/Narrative Re-Assessment/Exam: 02/26/18 14:31 I reviewed the images withe the patient. She is to follow-up with orthopedics if she continues to have symptoms beyond one week. Encouraged to was ht the wound with gentle soap and water and apply topical antibiotic ointment. Offered tetanus but declined. Discharge instructions as documented. Departure - Departure Time of Disposition: 14:31 Disposition: Home, Self-Care 01 Condition: Good Clinical Impression: Abrasion, knee - Discharge Information Instructions: Abrasion, [id number] Referrals: Nathalie Houser CORPORATE FITNESS PROGRAM COORDINATOR [Primary Care Provider] - Forms: ED Department Discharge Additional Instructions: Wash the wounds a gentle soap and water twice a day. Apply a topical antibiotic ointment such as bacitracin to the wounds twice a day. Monitor for signs of infection such as increased swelling, pus or redness. Presents for clinic or the ER should these develop. May take [id number] Tylenol as needed for pain relief. If you continue to have symptoms beyond one week follow up with orthopedics. Please return to the ER if your symptoms change or worsen.
--- NOTE | 2018-02-27 14:08 | CR ---
Left knee: Four views of the left knee were obtained. Comparison: No prior knee exam. Medial and lateral joint spaces are maintained in height. No joint effusion is seen. No fracture or other abnormality is seen. Impression: 1. No abnormality is identified on left knee exam. Diagnostic code #1
--- NOTE | 2018-02-27 14:08 | CR ---
Left elbow: Four views of left elbow were obtained. Comparison: No previous elbow study. Joint spaces are preserved. No joint effusion is seen. No fracture or other abnormality is identified. Impression: 1. No abnormality is identified on left elbow study. Diagnostic code #1
== END 2018-02-26 14:44 | disposition home or self-care (01) ==
LOC: JD.ED 12:40
DX: S80.212A Abrasion, left knee, initial encounter (principal); Z79.899 Other long term (current) drug therapy; W01.0XXA Fall on same level from slipping, tripping and stumbling without subsequent striking against object, initial encounter
CPT/HCPCS: 73080-26-LT; 73080-LT; 73564-26-LT; 73564-LT; 99283

== ENCOUNTER 2019-07-27 16:40 | Emergency (ER) | payer OTHER ==
[2019-07-27 17:15] VITALS: BP 118/76; PULSE 67
[2019-07-27] MEDS ORDERED: Ondansetron 4 MG Tab.DIS PO ONE (17:54)
[2019-07-27] MEDS ORDERED: Acetaminophen/HYDROcodone 325-5 MG Tab PO ONE (17:54)
--- NOTE | 2019-07-27 19:00 | EDM.PDOC ---
ED HPI GENERAL MEDICAL PROBLEM - General Chief Complaint: Eye Problems Stated Complaint: R EYE PAIN Time Seen by Provider: 07/27/19 17:41 Source of Information: Reports: Patient, RN Notes Reviewed - History of Present Illness INITIAL COMMENTS - FREE TEXT/NARRATIVE: 29-year-old is been sent here from [facility] for evaluation of right-sided headache, right retro-orbital pain. She did start with nasal congestion and what seemed like possible sinus infection a couple of weeks ago. She does continue to have nasal and sinus congestion although improved from 2 weeks ago. For the past week or so she has had increased right periorbital and retro- orbital pain with pain radiating to the right forehead area as well. No nausea vomiting fever or chills. States that her vision right eye has been somewhat blurry compared to the left. On Was not been having a difficulty with her contacts to her knowledge. There is been no inflammation of the eye, mattering or crusting or increased tearing. Right Eye Pain Score (Numeric/FACES): 8 - Related Data Allergies Allergy/AdvReac Type Severity Reaction Status Date / Time No Known Allergies Allergy Verified 07/27/19 17:15 Home Meds: Home Meds Levothyroxine Sodium 300 mcg PO DAILY 12/29/15 [History] Acetaminophen/HYDROcodone [Mentone 325-5 MG] 1 tab PO Q6H PRN #14 tablet 07/27/19 [Rx] Cephalexin [Keflex] 500 mg PO Q6HR #40 capsule 07/27/19 [Rx] Past Medical History - Past Health History Medical/Surgical History: Denies Medical/Surgical History HEENT History: Reports: None Cardiovascular History: Reports: None Respiratory History: Reports: None Other Respiratory History: laryngitis, cough Gastrointestinal History: Reports: None Genitourinary History: Reports: UTI, Recurrent Other Genitourinary History: vaginal discharge 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: Reports: Endometriosis, Polycystic Ovaries, , Other ( See Below) Other 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: pelvic pain, dysmenorrhea, female pelvic congestion syndrome, laparoscopy, pelvic adhesions, vaginitis, dysmenorrhea, pelvic congestion syndrome, vaginal discharge, vaginitis, irregular menses Musculoskeletal History: Reports: 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) Other Musculoskeletal History: knee surgery, back pain, joint pain, left knee strain Neurological History: Reports: Migraines Other Neuro History: fatigue Psychiatric History: Reports: 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) Other Psychiatric History: depression, fatigue, irritability Endocrine/Metabolic History: Reports: Hypothyroidism, 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) Other Endocrine/Metabolic History: L thyroid lobectomy, thyroid nodule Hematologic History: Reports: 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) Other Hematologic History: hypocalcemia, hypokalemia Immunologic History: Reports: None Oncologic (Cancer) History: Reports: Thyroid 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 Dermatologic History: Reports: 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) Other Dermatologic History: soft tissue mass - Past Surgical History Head Surgeries/Procedures: Reports: None HEENT Surgical History: Reports: Oral Surgery Other HEENT Surgeries/Procedures: wisdom teeth extraction Cardiovascular Surgical History: Reports: None Respiratory Surgical History: Reports: None GI Surgical History: Reports: None Female Surgical History: Reports: Section Endocrine Surgical History: Reports: Thyroidectomy Neurological Surgical History: Reports: None Musculoskeletal Surgical History: Reports: Arthroscopic Knee, 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) Other Musculoskeletal Surgeries/Procedures:: left shoulder surgery Social & Family History - Family History Family Medical History: Noncontributory - Tobacco Use Smoking Status *Q: Never Smoker - Caffeine Use Caffeine Use: Reports: Soda - Living Situation & Occupation Living situation: Reports: , with Family Occupation: Employed ED ROS GENERAL - Review of Systems Review Of Systems: See Below Constitutional: Denies: Fever, Chills, Diaphoresis HEENT: Reports: Sinus Problem (R sided pain and maureen. ). Denies: Rhinitis, Throat Pain Respiratory: Denies: Shortness of Breath Cardiovascular: Denies: Chest Pain GI/Abdominal: Denies: Abdominal Pain, Nausea, Vomiting Musculoskeletal: Denies: Neck Pain, Shoulder Pain, Arm Pain, Back Pain Skin: Reports: No Symptoms Neurological: Reports: Headache. Denies: Dizziness, Numbness, Trouble Speaking , Difficulty Walking, Weakness ED EXAM GENERAL W FULL EYE - Physical Exam Exam: See Below General Appearance: Alert, Mild Distress Eye Exam: Bilateral Eye: PERRL, Other (eye is not inflamed, EOM nl) Conjunctiva & Sclera: Bilateral: Normal Appearance Cornea Exam: Bilateral: Normal Appearance Pupillary Reaction: Bilateral: Brisk Ears: Normal External Exam Nose: Normal Inspection Throat/Mouth: Normal Inspection Head: Atraumatic, Facial Tenderness (mild tenderness to percussion R face). No : Facial Swelling Neck: Supple, Full Range of Motion Respiratory/Chest: No Respiratory Distress, Lungs Clear, Normal Breath Sounds Cardiovascular: Regular Rate, Rhythm Extremities: Normal Inspection, Normal Range of Motion Neurological: Alert, Oriented, No Motor/Sensory Deficits Skin Exam: Warm, Dry, Normal Color Course - Vital Signs Last Recorded V/S: Last Vital Signs Temp 98.3 F 07/27/19 17:11 Pulse 67 07/27/19 17:11 Resp 16 07/27/19 17:11 BP 118/76 07/27/19 17:11 Pulse Ox 97 07/27/19 17:11 - Orders/Labs/Meds Meds: Medications Discontinued Medications Generic Name Dose Route Start Last Admin Trade Name Freq PRN Reason Stop Dose Admin Hydrocodone Bitart/Acetaminophen 1 tab 07/27/19 17:54 07/27/19 18:34 Mentone 325-5 Mg PO 07/27/19 17:55 1 tab ONETIME ONE Administration Cephalexin 500 mg 07/27/19 19:49 07/27/19 19:55 Keflex PO 07/27/19 19:50 500 mg ONETIME ONE Administration Cephalexin Confirm 07/27/19 19:51 Keflex Administered 07/27/19 19:52 Dose 500 mg .ROUTE .STK-MED ONE Ondansetron HCl 4 mg 07/27/19 17:54 07/27/19 18:34 Zofran Odt PO 07/27/19 17:55 4 mg ONETIME ONE Administration - Re-Assessments/Exams Free Text/Narrative Re-Assessment/Exam: 07/27/19 20:18 CT of head normal, CT of orbit normal, CT of face does show acute sinusitis of right maxillary frontal and ethmoid sinuses. See radiology report for details. Departure - Departure Time of Disposition: 20:11 Disposition: Home, Self-Care 01 Condition: Fair Clinical Impression: Sinusitis - Discharge Information Prescriptions: Cephalexin [Keflex] 500 mg PO Q6HR #40 capsule Acetaminophen/HYDROcodone [Mentone 325-5 MG] 1 tab PO Q6H PRN #14 tablet PRN Reason: Pain Referrals: Alisson Schrader PA-C [Primary Care Provider] - Forms: ED Department Discharge Additional Instructions: Cephalexin antibiotic 500 mg 4 times daily for 10 days. Hydrocodone every 4-6 hours for severe discomfort as needed. Do not drive or work when taking hydrocodone. When the discomfort becomes less severe than alternate Tylenol and Aleve. Follow up at the [facility] in about 4-5 days for recheck, return to ED as needed if symptoms worsening in any way. Prescriptions are being sent electronically to [facility] [place] at this time.
--- NOTE | 2019-07-27 19:20 | CT ---
CT facial bones Technique: Multiple axial sections through the facial bones were obtained. Reconstructed coronal and sagittal images were reviewed. Comparison: No previous study. Findings: Slight mucosal thickening is seen within the right maxillary sinus. Moderate mucosal thickening within anterior right ethmoid sinus is seen. Mucosal thickening and air-fluid level is seen within the right frontal sinus. Right frontal findings are felt to be compatible with acute sinusitis. Right and left globes are symmetric. No retrobulbar abnormality is seen. Lacrimal grands appear within normal limits. No facial bone fracture is identified. Mastoid sinuses and middle ear cavities are clear. Impression: 1. Findings highly suspicious for right frontal acute sinusitis. 2. No other acute findings is seen on CT facial bone study. Diagnostic code #3 This report was dictated in [place] Standard Time
--- NOTE | 2019-07-27 19:20 | CT ---
Head CT Technique: Multiple axial sections through the brain were obtained. Intravenous contrast was not utilized. Comparison: No prior head CT study is available. Findings: Ventricles along with basal cisterns and sulci over convexities appear within normal limits for the patient's age. Prominent cisterna magna is seen which is a normal variant. No abnormal parenchymal densities are seen. No evidence of intracranial hemorrhage. No midline shift or mass affect is seen. Bone window settings were reviewed which shows an air-fluid level within the right frontal sinus. Mucosal thickening is seen within the right ethmoid sinus. No acute calvarial abnormality is seen. Impression: 1. Fluid is noted within the right frontal sinus as well as mucosal thickening within right ethmoid sinus. Findings are highly suspicious for acute sinusitis. 2. Prominent cisterna magna which is felt to be a normal variant. 3. No acute intracranial abnormality is seen. Diagnostic code #3 This report was dictated in [place] Standard Time
[2019-07-27] MEDS ORDERED: Cephalexin 500 MG Cap PO ONE (19:49)
[2019-07-27] MEDS ORDERED: Cephalexin 500 MG Cap ONE (19:51)
== END 2019-07-27 20:24 | disposition home or self-care (01) ==
LOC: JD.ED 16:40
DX: J01.20 Acute ethmoidal sinusitis, unspecified (principal); J01.10 Acute frontal sinusitis, unspecified; J01.00 Acute maxillary sinusitis, unspecified; E03.9 Hypothyroidism, unspecified; Z79.899 Other long term (current) drug therapy
CPT/HCPCS: 70450; 70486; 99284; A9270; 99283

== ENCOUNTER 2019-08-01 07:22 | Emergency (ER) | payer OTHER ==
[2019-08-01 07:44] VITALS: BP 118/71; PULSE 66
--- NOTE | 2019-08-01 07:57 | EDM.PDOC ---
ED HPI GENERAL MEDICAL PROBLEM - General Chief Complaint: General Stated Complaint: UNABLE TO WALK NOR SPEAK POST SINUS INFECTION Time Seen by Provider: 08/01/19 07:44 - History of Present Illness INITIAL COMMENTS - FREE TEXT/NARRATIVE: 39-year-old female presents emergency room with difficulty speaking and difficulty walking. The patient did given she woke up this morning and then around 7 AM developed fairly sudden onset difficulty speaking and difficulty with ambulation. The patient was started on prednisone 20 mg twice a day yesterday and had her antibiotics to Augmentin for a sinus infection and it wasn't getting better. Patient was seen here a week or so ago diagnosed with a sinus infection started on antibiotics but apparently this was not getting any better. The patient is used to sinus irrigation as well. The patient has never had an episode like this in the past the patient has never been on steroids in the past. Lower Back Pain Score (Numeric/FACES): 8 - Related Data Allergies Allergy/AdvReac Type Severity Reaction Status Date / Time No Known Allergies Allergy Verified 08/01/19 07:31 Home Meds: Home Meds Levothyroxine Sodium 300 mcg PO DAILY 12/29/15 [History] Acetaminophen/HYDROcodone [[place] 325-5 MG] 1 tab PO Q6H PRN #14 tablet 07/27/19 [Rx] Amoxicillin/Potassium Clav [Augmentin 875-125 Tablet] 875 mg PO BID 08/01/19 [ History] predniSONE [Prednisone] 0 mg PO BID 08/01/19 [History] Past Medical History - Past Health History Medical/Surgical History: Denies Medical/Surgical History HEENT History: Reports: None Cardiovascular History: Reports: None Respiratory History: Reports: None Other Respiratory History: laryngitis, cough Gastrointestinal History: Reports: None Genitourinary History: Reports: UTI, Recurrent Other Genitourinary History: vaginal discharge 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: Reports: Endometriosis, Polycystic Ovaries, , Other ( See Below) Other 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: pelvic pain, dysmenorrhea, female pelvic congestion syndrome, laparoscopy, pelvic adhesions, vaginitis, dysmenorrhea, pelvic congestion syndrome, vaginal discharge, vaginitis, irregular menses Musculoskeletal History: Reports: 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) Other Musculoskeletal History: knee surgery, back pain, joint pain, left knee strain Neurological History: Reports: Migraines Other Neuro History: fatigue Psychiatric History: Reports: 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) Other Psychiatric History: depression, fatigue, irritability Endocrine/Metabolic History: Reports: Hypothyroidism, 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) Other Endocrine/Metabolic History: L thyroid lobectomy, thyroid nodule Hematologic History: Reports: 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) Other Hematologic History: hypocalcemia, hypokalemia Immunologic History: Reports: None Oncologic (Cancer) History: Reports: Thyroid 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 Dermatologic History: Reports: 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) Other Dermatologic History: soft tissue mass - Past Surgical History Head Surgeries/Procedures: Reports: None HEENT Surgical History: Reports: Oral Surgery Other HEENT Surgeries/Procedures: wisdom teeth extraction Cardiovascular Surgical History: Reports: None Respiratory Surgical History: Reports: None GI Surgical History: Reports: None Female Surgical History: Reports: Section Endocrine Surgical History: Reports: Thyroidectomy Neurological Surgical History: Reports: None Musculoskeletal Surgical History: Reports: Arthroscopic Knee, 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) Other Musculoskeletal Surgeries/Procedures:: left shoulder surgery Social & Family History - Family History Family Medical History: Noncontributory - Caffeine Use Caffeine Use: Reports: Soda - Living Situation & Occupation Living situation: Reports: , with Family Occupation: Employed ED ROS GENERAL - Review of Systems Review Of Systems: See Below Constitutional: Denies: Fever, Chills HEENT: Reports: Sinus Problem Respiratory: Reports: No Symptoms Cardiovascular: Reports: No Symptoms Endocrine: Reports: No Symptoms GI/Abdominal: Reports: No Symptoms : Reports: No Symptoms Musculoskeletal: Reports: Other (Is having some muscle cramping at times) Skin: Reports: No Symptoms Neurological: Reports: Trouble Speaking, Difficulty Walking Psychiatric: Reports: No Symptoms Hematologic/Lymphatic: Reports: No Symptoms Immunologic: Reports: No Symptoms ED EXAM, GENERAL - Physical Exam Exam: See Below Exam Limited By: No Limitations General Appearance: Alert, No Apparent Distress, Other (She has almost a stuttering speech pattern) Ears: Normal External Exam, Normal Canal, Other (Some pressure behind the right tympanic membrane does not appear to be infected left signs normal) Nose: Other (His percussion is exquisitely tender over the right frontal sinus and to a lesser degree right maxillary sinus left sinuses appear fairly normal) Throat/Mouth: Normal Inspection, Normal Lips, Normal Teeth, Normal Gums, Normal Oropharynx, Normal Voice, No Airway Compromise Head: Atraumatic, Normocephalic Neck: Other (Thyroid is enlarged left side more so than right). No: Lymphadenopathy (L), Lymphadenopathy (R) Respiratory/Chest: No Respiratory Distress, Lungs Clear, Normal Breath Sounds Cardiovascular: Regular Rate, Rhythm, No Murmur, Other (Lower extremity edema) GI/Abdominal: Normal Bowel Sounds, Soft, Non-Tender Extremities: Normal Inspection, Non-Tender, Other (Lower extremity edema) Neurological: Alert, Oriented, Other (Her neuro exam is normal other than the ataxia cranial nerves II through XII except for speech difficulties.) Psychiatric: Normal Affect, Normal Mood Skin Exam: Warm, Dry, Intact, Normal Color Course - Vital Signs Last Recorded V/S: Last Vital Signs Temp 36.7 C 08/01/19 07:30 Pulse 66 08/01/19 07:30 Resp 16 08/01/19 07:30 BP 118/71 08/01/19 07:30 Pulse Ox 99 08/01/19 07:30 - Orders/Labs/Meds Orders: Active Orders 24 hr Category Date Time Status DRUG SCREEN, URINE [URCHEM] Stat Lab 08/01/19 07:59 Ordered HCG QUALITATIVE,URINE [URCHEM] Stat Lab 08/01/19 08:02 Ordered URINALYSIS W/MICROSCOPIC [UA W/MICROSCOPIC] [URIN] Stat Lab 08/01/19 07:59 Ordered Labs: Laboratory Tests 08/01/19 08/01/19 08/01/19 Range/Units 09:06 09:06 09:06 WBC 11.97 H (3.98-10.04) K/mm3 RBC 4.63 (3.98-5.22) M/mm3 Hgb 15.1 (11.2-15.7) gm/dl Hct 42.0 (34.1-44.9) % MCV 90.7 D (79.4-94.8) fl MCH 32.6 H (25.6-32.2) pg MCHC 36.0 H (32.2-35.5) g/dl RDW Std Deviation 39.2 (36.4-46.3) fL Plt Count 150 L (182-369) K/mm3 MPV 9.7 (9.4-12.3) fl Neutrophils % (Manual) 73 H (40-60) % Band Neutrophils % 0 (0-10) % Lymphocytes % (Manual) 19 L (20-40) % Atypical Lymphs % 0 % Monocytes % (Manual) 6 (2-10) % Eosinophils % (Manual) 2 (0.7-5.8) % Basophils % (Manual) 0 L (0.1-1.2) Platelet Estimate Adequate RBC Morph Comment Normal Sodium 143 (136-145) mEq/L Potassium 3.9 (3.5-5.1) mEq/L Chloride 107 (98-107) mEq/L Carbon Dioxide 26 (21-32) mEq/L Anion Gap 13.9 (5-15) BUN 11 (7-18) mg/dL Creatinine 0.6 (0.55-1.02) mg/dL Est Cr Clr Drug Dosing 142.07 mL/min Estimated GFR (MDRD) > 60 (>60) mL/min BUN/Creatinine Ratio 18.3 H (14-18) Glucose 99 (74-106) mg/dL Calcium 9.0 (8.5-10.1) mg/dL Magnesium 1.9 (1.8-2.4) mg/dl Total Bilirubin 0.6 (0.2-1.0) mg/dL AST 18 (15-37) U/L ALT 22 (14-59) U/L Alkaline Phosphatase 55 (46-116) U/L Total Protein 7.3 (6.4-8.2) g/dl Albumin 3.8 (3.4-5.0) g/dl Globulin 3.5 gm/dL Albumin/Globulin Ratio 1.1 (1-2) Free T4 0.50 L (0.76-1.46) ng/dL TSH 3rd Generation 37.393 H (0.358-3.74) uIU/mL Meds: Medications Discontinued Medications Generic Name Dose Route Start Last Admin Trade Name Freq PRN Reason Stop Dose Admin Gadobenate Dimeglumine 20 ml 08/01/19 09:38 08/01/19 10:29 Multihance IVPUSH 08/01/19 09:39 20 ml ONETIME ONE Administration Sodium Chloride 10 ml 08/01/19 09:38 08/01/19 10:29 Saline Flush FLUSH 08/01/19 12:00 10 ml ONETIME PRN Administration Keep Vein Open - Re-Assessments/Exams Free Text/Narrative Re-Assessment/Exam: 08/01/19 12:[address] little over a week ago unrevealing I was able to get in for an MRI this morning which was concerning for what was going beyond the right eye radiology recommended an MRI with contrast this was obtained along is an MRV to exclude venous thrombosis. This was all normal in the in. Her lab work did come back other than her urine. This is very concerning with a TSH of 37.4. However I 've never seen cerebral ataxia's with sudden onset caused by hypothyroidism. I discussed this with neurology at [facility] as endocrinology was not available at either hospital and he recommended pursuing further workup and thought it would be reasonable to transfer the patient there. I discussed it with Dr. Vernon our hospitalist here who agrees the patient should probably go to [place]. I talked to the patient and my concern is a solid explanation for her symptoms that are significant and I will feeling discharging her back to community for outpatient evaluation. They agreed to transferring to [place]. The patient is been here for quite a long time we have not been able to obtain a urine even though the patient just voided. 08/01/19 13:22 Patient declined transfer they would like to go by private vehicle. Departure - Departure Time of Disposition: 13:00 Disposition: DC/Tfer to Acute Hospital 02 Clinical Impression: Ataxia, Hypothyroidism - Discharge Information Referrals: Alisson Schrader PA-C [Primary Care Provider] - Forms: ED Department Discharge Additional Instructions: Go to the registration desk at [facility] and they will direct you on where to go. Sepsis Event Note - Evaluation Sepsis Screening Result: No Definite Risk - Focused Exam Vital Signs: Vital Signs Temp Pulse Resp BP Pulse Ox 08/01/19 07:30 36.7 C 66 16 118/71 99 Date Exam was Performed: 08/01/19 Time Exam was Performed: 13:22 - My Orders Last 24 Hours: My Active Orders 08/01/19 07:59 DRUG SCREEN, URINE [URCHEM] Stat URINALYSIS W/MICROSCOPIC [UA W/MICROSCOPIC] [URIN] Stat 08/01/19 08:02 HCG QUALITATIVE,URINE [URCHEM] Stat - Assessment/Plan Last 24 Hours: My Active Orders 08/01/19 07:59 DRUG SCREEN, URINE [URCHEM] Stat URINALYSIS W/MICROSCOPIC [UA W/MICROSCOPIC] [URIN] Stat 08/01/19 08:02 HCG QUALITATIVE,URINE [URCHEM] Stat
[2019-08-01] MEDS ORDERED: Gadobenate Dimeglumine 529 MG/ML 20 ML SDV IVPUSH ONE (09:38)
[2019-08-01] MEDS ORDERED: Sodium Chloride 0.9% 10 ML Syringe FLUSH PRN (09:38)
--- NOTE | 2019-08-01 10:57 | MR ---
MRI brain with venogram (without and with intravenous contrast) Technique: T1 sagittal; T2, T2 FLAIR, T1 and diffusion axial; T1 FLAIR coronal images were obtained. Additional postcontrast T1 axial and coronal images were obtained. Venogram study also performed. Comparison: Previous head CT exam of 07/27/19. Findings: Mucosal thickening is again seen within the frontal and ethmoid sinus. Normal low signal posterior wall of the frontal sinus remains intact. No extension of the sinus disease into the intracranial structures is noted at this time. No abnormal enhancement is seen within the adjacent brain. No abnormal enhancement is seen within other portions of the brain. Superior and inferior sagittal sinuses are patent with no evidence of thrombosis. Transverse sinuses are patent. Proximal jugular veins are also patent. Mastoid sinuses are clear. Prominent cisterna magna is noted. This may also represent an arachnoid cyst which is usually normal variant. No abnormal signal is seen within the brain parenchyma. No midline shift or mass effect is seen. No acute diffusion abnormalities are seen. Impression: 1. Sinus disease as noted above. No intracranial extension is seen. 2. Prominent cisterna magna or possibly arachnoid cyst posterior to the cerebellum which is generally considered as a normal variant. 3. No intracranial abnormality is seen. No acute diffusion abnormalities or abnormal enhancement is seen. Dural venous sinuses are patent. Diagnostic code #3 This report was dictated in [place] Standard Time
== END 2019-08-01 13:35 ==
LOC: JD.ED 07:22
DX: R27.0 Ataxia, unspecified (principal); E03.9 Hypothyroidism, unspecified; Z79.899 Other long term (current) drug therapy
CPT/HCPCS: 36415; 70553; 80053; 80306; 81001; 81025; 83735; 84439; 84443; 85007; 85027; 99285; A9577

== ENCOUNTER 2022-07-26 15:19 | Emergency (ER) | payer OTHER ==
[2022-07-26] MEDS ORDERED: Sodium Chloride 0.9% 10 ML Syringe FLUSH PRN (15:57)
[2022-07-26] MEDS ORDERED: HYDROmorphone 1 MG/ML Syringe IVPUSH STA (15:57)
[2022-07-26] MEDS ORDERED: Ondansetron 4 MG/2 ML SDV IVPUSH ONE (15:57)
[2022-07-26] MEDS ORDERED: Sodium Chloride 0.9% 1,000 ML IV SCH (16:00)
[2022-07-26] MEDS ORDERED: Iopamidol 612 MG/ML 100 ML Bottle IVPUSH ONE (16:11)
[2022-07-26] MEDS ORDERED: Sodium Chloride 0.9% 10 ML Syringe FLUSH ONE (16:11)
[2022-07-26 16:53] LABS: ESTIMATED GFR 124 mL/min (>60)
[2022-07-26] MEDS ORDERED: Cefdinir 300 MG Cap PO ONE (18:50)
[2022-07-26] MEDS ORDERED: Acetaminophen/HYDROcodone 325-5 MG Tab PO ONE (19:15)
[2022-07-26 19:27] VITALS: BP 121/66; PULSE 98
== END 2022-07-26 19:27 | disposition home or self-care (01) ==
LOC: JD.ED 15:19
DX: R10.84 Generalized abdominal pain (principal); E03.9 Hypothyroidism, unspecified; Z79.899 Other long term (current) drug therapy
CPT/HCPCS: 36415; 74177; 80053; 81001; 82977; 83690; 85025; 86140; 87086; 96361; 96374; 96375; 99284; A9270; J1170; J2405; J3490; J7030; Q9967; 87088; 87186

== ENCOUNTER 2022-07-29 09:28 | Day surgery (SDC) | payer OTHER ==
[~2022-07-29 09:28] MED LIST changes: +Lidocaine 1%/Sod Bicarbonate in NS 8.4% 1 ML Syringe IDERM PRN; +Sodium Chloride 0.9% 10 ML Syringe FLUSH SCH
[2022-07-29] MEDS: Lactated Ringers 1,000 ML IV SCH ×2 (09:40→13:30)
[2022-07-29] MEDS ORDERED: Scopolamine 1.5 MG Transdermal Patch TRDERM PRN (09:52)
[2022-07-29] MEDS ORDERED: Lidocaine 1% with EPINEPHrine 1:100,000 10 ML MDV ONE (09:55)
[2022-07-29] MEDS ORDERED: Bupivacaine 0.5%/EPINEPHrine 1:200,000 50 ML MDV ONE (09:55)
[2022-07-29] MEDS ORDERED: Ondansetron 4 MG/2 ML SDV ONE (10:42)
[2022-07-29] MEDS ORDERED: Midazolam 1 MG/ML 2 ML SDV ONE (10:43)
[2022-07-29] MEDS ORDERED: Sugammadex Sodium 200 MG/2 ML VIAL ONE (10:45)
[2022-07-29] MEDS ORDERED: Famotidine 20 MG/2 ML SDV ONE (10:46)
[2022-07-29] MEDS ORDERED: Lidocaine 1% 30 ML SDV ONE (10:59)
[2022-07-29] MEDS ORDERED: Propofol 200 MG/20 ML SDV ONE (10:59)
[2022-07-29] MEDS ORDERED: Rocuronium 50 MG/5 ML Vial ONE (11:00)
[2022-07-29] MEDS ORDERED: fentaNYL 100 MCG/2 ML SDV ONE ×2 (11:00→12:17)
[2022-07-29] MEDS ORDERED: Lidocaine 1% 4 ML ONE (11:00)
[2022-07-29] MEDS ORDERED: ceFAZolin 2 GM Vial ONE (11:27)
[2022-07-29] MEDS ORDERED: Esmolol 100 MG/10 ML SDV ONE (11:27)
[2022-07-29] MEDS ORDERED: Dexmedetomidine 200 MCG/2 ML SDV ONE (11:28)
[2022-07-29] MEDS ORDERED: Ketamine 500 mg/10 ML MDV ONE (11:32)
[2022-07-29] MEDS ORDERED: Dexamethasone 4 MG/ML 5 ML MDV ONE (11:35)
[2022-07-29] MEDS ORDERED: fentaNYL 100 MCG/2 ML SDV IVPUSH PRN (11:59)
[2022-07-29] MEDS ORDERED: Ondansetron 4 MG/2 ML SDV IVPUSH PRN (11:59)
[2022-07-29] MEDS ORDERED: HYDROmorphone 0.5 MG/0.5 ML Syringe IVPUSH PRN (11:59)
[2022-07-29] MEDS ORDERED: Ketorolac 30 MG/ML SDV ONE (12:07)
[2022-07-29] MEDS ORDERED: Lactated Ringers 1,000 ML ONE (12:15)
[2022-07-29] MEDS ORDERED: oxyCODONE 5 MG Tab PO ONE (15:00)
[2022-07-29 15:31] VITALS: PULSE 70
[2022-07-29 15:32] VITALS: BP 98/60
== END 2022-07-29 14:55 | disposition home or self-care (01) ==
LOC: JD.SDS 09:28
PROVIDERS: ATTEND Surgery
DX: K80.10 Calculus of gallbladder with chronic cholecystitis without obstruction (principal); E03.9 Hypothyroidism, unspecified; E06.3 Autoimmune thyroiditis; F90.9 Attention-deficit hyperactivity disorder, unspecified type; F32.A Depression, unspecified; E87.6 Hypokalemia; Z79.890 Hormone replacement therapy; Z79.899 Other long term (current) drug therapy; Z98.890 Other specified postprocedural states
CPT/HCPCS: 47562; A9270; J0690; J1100; J1885; J2250; J2405; J2704; J3010; J3490; J7120